=== PATIENT | male | born 1960 | race Caucasian/White ===

== ENCOUNTER 2018-04-23 15:52 | Emergency (ER) | payer OTHER ==
[~2018-04-23] VITALS: Ht 185.4 cm; Wt 86.2 kg
[~2018-04-23 15:52] MED LIST: COQ10 PO; FAMO20; FAMO20 PO; FISH OIL; HYDR-86 PO; LORPSEER12; MULVITMIND PO; NAPR500 PO; OXYACE5T PO; PROBIOTIC PO; Pepcid40 MG PO; RESERVATROL PO; SUCR1 PO; VIT D3
[2018-04-23] MEDS ORDERED: Percocet 5-3251 EACH PO (18:16)
== END 2018-04-23 18:58 | disposition home or self-care (01) ==
LOC: ER 15:52
DX: S52.572A Other intraarticular fracture of lower end of left radius, initial encounter for closed fracture (principal); W11.XXXA Fall on and from ladder, initial encounter
CPT/HCPCS: 25605; 36415; 73100; 73110; 96374; 99152; 99283-25; J3010; J7030

== ENCOUNTER 2018-04-30 06:21 | Day surgery (SDC) | payer OTHER ==
[~2018-04-30] VITALS: Ht 185.4 cm; Wt 83.8 kg
[~2018-04-30 06:21] MED LIST changes: +Percocet 5-3251 EACH PO
[2018-04-30] MEDS ORDERED: Hair, Skin & N1 EACH PO (07:47)
[2018-04-30] MEDS ORDERED: CHOL10002 PO (07:47)
[2018-04-30] MEDS ORDERED: RESVERATROL100 MG PO (07:48)
[2018-04-30] MEDS ORDERED: FISH OIL 1,0001 EAC2 PO (07:48)
== END 2018-04-30 11:12 | disposition home or self-care (01) ==
LOC: ORSCSDS 06:21
PROVIDERS: Orthopaedic Surgery
PROC: 0PSJ04Z Reposition Left Radius with Internal Fixation Device, Open Approach (ICD-10-PCS; principal; 2018-04-30 07:30)
DX: S52.502A Unspecified fracture of the lower end of left radius, initial encounter for closed fracture (principal); E78.5 Hyperlipidemia, unspecified
CPT/HCPCS: C1713; J0171; J0690; J1100; J1885; J2250; J2405; J3010; J7120

== ENCOUNTER → 2020-10-26 | Outpatient (CLI) | payer OTHER ==
[~2020-10-26] MED LIST changes: +CHOL10002 PO; +FISH OIL 1,0001 EAC2 PO; +Hair, Skin & N1 EACH PO; +RESVERATROL100 MG PO
== END | disposition home or self-care (01) ==
LOC: LAB SHORT 11:41 → PLD 11:41
DX: D48.5 Neoplasm of uncertain behavior of skin (principal)
CPT/HCPCS: 88305

== ENCOUNTER → 2021-06-15 | Outpatient (CLI) | payer OTHER | END | disposition home or self-care (01) | LOC: LAB SHORT 11:28 → LAB 11:28 | DX: C44.722 Squamous cell carcinoma of skin of right lower limb, including hip (principal) | CPT/HCPCS: 88305 ==

== ENCOUNTER → 2021-07-29 | Outpatient (CLI) | payer OTHER | END | disposition home or self-care (01) | LOC: LAB 15:31 → LAB SHORT 15:31 | DX: C44.722 Squamous cell carcinoma of skin of right lower limb, including hip (principal) | CPT/HCPCS: 88305 ==

== ENCOUNTER 2022-05-24 00:31 | Day surgery (SDC) | payer OTHER ==
[2022-05-24] MEDS ORDERED: ELIGARD22.5 MG SC ×2 (10:55)
[2022-05-24] MEDS ORDERED: Athenol325 MG PO (10:57)
== END 2022-05-24 10:40 | disposition home or self-care (01) ==
LOC: ATC 00:31
DX: C61 Malignant neoplasm of prostate (principal)
CPT/HCPCS: 96372; J9217

== ENCOUNTER 2022-07-13 08:42 | Day surgery (SDC) | payer OTHER ==
[~2022-07-13] VITALS: Ht 185.4 cm; Wt 104.9 kg
[~2022-07-13 08:42] MED LIST changes: +Athenol325 MG PO; +ELIGARD22.5 MG SC
--- NOTE | 2022-07-13 10:18 | NUR ---
07/13/22 1018 Kyara Shrestha 5MLS OF LIDOCAINE 2% WITH EPI 1:100,000 WAS MIXED 1:1 5MLS OF NACL TO CREATE A SOLUTION OF LIDOCAINE 1% WITH EPI 1:200,000.
--- NOTE | 2022-07-13 11:43 | NUR ---
07/13/22 1143 PAULINO BELLO PT NOW STATES THAT PAIN IS A 3/10. PAIN MEDICATION PO OXYCODONE GIVEN. PT DECLINES FENTANYL NOW SINCE PAIN IS LESS THAN HE AT FIRST THOUGHT.
== END 2022-07-13 12:15 | disposition home or self-care (01) ==
LOC: ORSCSDS 08:42
PROVIDERS: Otolaryngology
PROC: 0GTH0ZZ Resection of Right Thyroid Gland Lobe, Open Approach (ICD-10-PCS; principal; 2022-07-13 10:00)
DX: E04.2 Nontoxic multinodular goiter (principal); Z85.46 Personal history of malignant neoplasm of prostate; K21.9 Gastro-esophageal reflux disease without esophagitis; E78.5 Hyperlipidemia, unspecified
CPT/HCPCS: 88307; A9270; J1100; J1885; J2250; J2405; J2704; J3010; J7120

== ENCOUNTER 2023-12-20 02:59 | Day surgery (SDC) | payer OTHER ==
[~2023-12-20 02:59] MED LIST changes: +BICALUTAMIDE50 M1; +CYCL10; +HYDROCODONE-AC1 EA19 PO; +ONDA4ODT MM
== END 2023-12-20 23:03 | disposition home or self-care (01) ==
LOC: HBO 02:59
DX: M27.2 Inflammatory conditions of jaws (principal); Z92.3 Personal history of irradiation; Z85.46 Personal history of malignant neoplasm of prostate
CPT/HCPCS: G0277

== ENCOUNTER 2023-12-21 03:16 | Day surgery (SDC) | payer OTHER | END 2023-12-21 22:54 | disposition home or self-care (01) | LOC: HBO 03:16 | DX: M27.2 Inflammatory conditions of jaws (principal); Z92.3 Personal history of irradiation; Z85.46 Personal history of malignant neoplasm of prostate | CPT/HCPCS: G0277 ==

== ENCOUNTER 2023-12-28 08:46 | Day surgery (SDC) | payer OTHER | END 2023-12-28 22:56 | disposition home or self-care (01) | LOC: HBO 08:46 | PROC: 6A150ZZ Decompression, Circulatory, Single (ICD-10-PCS; principal; 2023-12-28) | DX: M27.2 Inflammatory conditions of jaws (principal); Z92.3 Personal history of irradiation; Z85.46 Personal history of malignant neoplasm of prostate | CPT/HCPCS: G0277 ==

== ENCOUNTER 2024-01-15 04:19 | Day surgery (SDC) | payer OTHER | END 2024-01-15 22:54 | disposition home or self-care (01) | LOC: HBO 04:19 | DX: M27.2 Inflammatory conditions of jaws (principal); Z92.3 Personal history of irradiation; Z85.46 Personal history of malignant neoplasm of prostate | CPT/HCPCS: G0277 ==

== ENCOUNTER 2024-01-17 08:02 | Day surgery (SDC) | payer OTHER | END 2024-01-17 22:38 | disposition home or self-care (01) | LOC: HBO 08:02 | DX: M27.2 Inflammatory conditions of jaws (principal); Z92.3 Personal history of irradiation; Z85.46 Personal history of malignant neoplasm of prostate | CPT/HCPCS: G0277 ==

== ENCOUNTER 2024-01-18 02:40 | Day surgery (SDC) | payer OTHER | END 2024-01-18 22:39 | disposition home or self-care (01) | LOC: HBO 02:40 | DX: M27.2 Inflammatory conditions of jaws (principal); Z92.3 Personal history of irradiation; Z85.46 Personal history of malignant neoplasm of prostate | CPT/HCPCS: G0277 ==

== ENCOUNTER 2024-01-19 04:14 | Day surgery (SDC) | payer OTHER | END 2024-01-19 22:55 | disposition home or self-care (01) | LOC: HBO 04:14 | DX: M27.2 Inflammatory conditions of jaws (principal); Z92.3 Personal history of irradiation; Z85.46 Personal history of malignant neoplasm of prostate | CPT/HCPCS: G0277 ==

== ENCOUNTER 2024-01-22 00:09 | Day surgery (SDC) | payer OTHER | END 2024-01-22 22:39 | disposition home or self-care (01) | LOC: HBO 00:09 | DX: M27.2 Inflammatory conditions of jaws (principal); Z92.3 Personal history of irradiation; Z85.46 Personal history of malignant neoplasm of prostate | CPT/HCPCS: G0277 ==

== ENCOUNTER 2024-01-23 00:57 | Day surgery (SDC) | payer OTHER | END 2024-01-23 23:16 | disposition home or self-care (01) | LOC: HBO 00:57 | DX: M27.2 Inflammatory conditions of jaws (principal); Z92.3 Personal history of irradiation; Z85.46 Personal history of malignant neoplasm of prostate | CPT/HCPCS: G0277 ==

== ENCOUNTER 2024-01-24 04:45 | Day surgery (SDC) | payer OTHER | END 2024-01-24 23:08 | disposition home or self-care (01) | LOC: HBO 04:45 | DX: M27.2 Inflammatory conditions of jaws (principal); Z92.3 Personal history of irradiation; Z85.46 Personal history of malignant neoplasm of prostate | CPT/HCPCS: G0277 ==

== ENCOUNTER 2024-01-25 03:40 | Day surgery (SDC) | payer OTHER | END 2024-01-25 23:07 | disposition home or self-care (01) | LOC: HBO 03:40 | PROC: 5A05121 Extracorporeal Hyperbaric Oxygenation, Intermittent (ICD-10-PCS; principal; 2024-01-25) | DX: M27.2 Inflammatory conditions of jaws (principal); Z92.3 Personal history of irradiation; Z85.46 Personal history of malignant neoplasm of prostate | CPT/HCPCS: G0277 ==

== ENCOUNTER 2024-01-29 04:12 | Day surgery (SDC) | payer OTHER | END 2024-01-29 22:46 | disposition home or self-care (01) | LOC: HBO 04:12 | DX: M27.2 Inflammatory conditions of jaws (principal); Z92.3 Personal history of irradiation; Z85.46 Personal history of malignant neoplasm of prostate ==

== ENCOUNTER 2024-10-15 08:06 | Emergency (ER) | payer OTHER ==
[~2024-10-15] VITALS: Ht 182.9 cm; Wt 74.8 kg
[2024-10-15 09:57] LABS: BASOPHILS ABSOLUTE AUTO 0.01 K/mm3 (0.00-0.23); BASOPHILS PERCENT AUTO 0 % (0-2); EOSINOPHILS ABSOLUTE AUTO 0.01 K/mm3 (0.00-0.68); EOSINOPHILS PERCENT AUTO 0 % (0-6); Hematocrit 20.7 % (37.0-53.0); Hemoglobin 6.9 g/dL (13.5-17.5); IMMATURE GRAN ABSOLUTE AUTO 0.11 K/mm3 (0.00-0.10); IMMATURE GRAN PERCENT AUTO 3 % (0-1); LYMPHOCYTES ABSOLUTE AUTO 0.09 K/mm3 (0.84-5.20); LYMPHOCYTES PERCENT AUTO 2 % (21-46); MONOCYTES ABSOLUTE AUTO 0.53 K/mm3 (0.16-1.47); MONOCYTES PERCENT AUTO 14 % (4-13); Mean Corpuscular HGB 30.4 pg (26.0-34.0); Mean Corpuscular HGB Conc 33.3 g/dL (31.5-36.5); Mean Corpuscular Volume 91 fL (80-100); Mean Platelet Volume 10.1 fL (9.1-12.4); NEUTROPHILS ABSOLUTE AUTO 3.03 K/mm3 (1.96-9.15); NEUTROPHILS PERCENT AUTO 80 % (41-73); NRBC ABSOLUTE 0.03 K/mm3 (0.00-0.02); NRBC Auto 0.8 /100 WBC (0.0-0.2); Platelet Count 71 K/mm3 (150-400); RDW Coefficient Variation 16.9 % (11.7-14.2); RDW Standard Deviation 55.3 fL (35.1-46.3); Red Blood Cell Count 2.27 M/mm3 (4.30-5.90); White Blood Cell Count 3.78 K/mm3 (4.00-11.30)
[2024-10-15 10:14] LABS: Albumin, Blood 2.6 g/dL (3.4-5.0); Albumin/Globulin Ratio 0.7 (0.8-1.8); Bilirubin, Total 0.4 mg/dL (0.1-1.0); Bun/Creatinine Ratio 30.5 (12.0-20.0); Calcium, Blood 9.4 mg/dL (8.5-10.1); Creatinine, Blood 1.28 mg/dL (0.60-1.20); Globulin, Blood 3.9 g/dL (2.2-4.0); Total Protein, Blood 6.5 g/dL (6.4-8.2)
[2024-10-15] MEDS ORDERED: NS 1,000 ML IV ONE (12:04)
[2024-10-15] MEDS ORDERED: Ondansetron HCl 2 MG / ML 2ML Vial IV ONE ×2 (12:20→18:05)
[2024-10-15] MEDS ORDERED: NS 1,000 ML IV SCH (12:20)
[2024-10-15] MEDS ORDERED: Ibuprofen 400 MG Tab PO ONE (17:55)
[2024-10-15] MEDS ORDERED: Acetaminophen 500 MG Tab PO ONE (17:55)
[2024-10-15 18:00] VITALS: BP 121/69
== END 2024-10-15 18:54 | disposition home or self-care (01) ==
LOC: ER 08:06
PROVIDERS: Student in an Organized Health Care Education/Training Program
DX: D64.9 Anemia, unspecified (principal); C61 Malignant neoplasm of prostate; Z79.899 Other long term (current) drug therapy
CPT/HCPCS: 36430; 80053; 85025; 86850; 86900; 86901; 86923; 96374; 99284-25; A9270; J2405; J7030; P9016

== ENCOUNTER → 2024-11-18 | Outpatient (CLI) | payer OTHER ==
[2024-11-18 17:52] LABS: BASOPHILS ABSOLUTE AUTO 0.01 K/mm3 (0.00-0.23); BASOPHILS PERCENT AUTO 0 % (0-2); EOSINOPHILS ABSOLUTE AUTO 0.04 K/mm3 (0.00-0.68); EOSINOPHILS PERCENT AUTO 1 % (0-6); Hematocrit 21.8 % (37.0-53.0); Hemoglobin 6.9 g/dL (13.5-17.5); IMMATURE GRAN ABSOLUTE AUTO 0.09 K/mm3 (0.00-0.10); IMMATURE GRAN PERCENT AUTO 3 % (0-1); LYMPHOCYTES ABSOLUTE AUTO 0.25 K/mm3 (0.84-5.20); LYMPHOCYTES PERCENT AUTO 8 % (21-46); MONOCYTES ABSOLUTE AUTO 0.26 K/mm3 (0.16-1.47); MONOCYTES PERCENT AUTO 9 % (4-13); Mean Corpuscular HGB 30.3 pg (26.0-34.0); Mean Corpuscular HGB Conc 31.7 g/dL (31.5-36.5); Mean Corpuscular Volume 96 fL (80-100); NEUTROPHILS ABSOLUTE AUTO 2.35 K/mm3 (1.96-9.15); NEUTROPHILS PERCENT AUTO 78 % (41-73); NRBC ABSOLUTE 0.27 K/mm3 (0.00-0.02); RDW Standard Deviation 65.6 fL (35.1-46.3); Red Blood Cell Count 2.28 M/mm3 (4.30-5.90)
[2024-11-18 18:26] LABS: Platelet Count 25 K/mm3 (150-400)
[2024-11-18 23:39] LABS: Alanine Aminotransfer (ALT/SGP 20 U/L (12-78); Albumin, Blood 2.2 g/dL (3.4-5.0); Albumin/Globulin Ratio 0.5 (0.8-1.8); Alk Phos 991 U/L (50-136); Anion Gap 12 mmol/L (3-11); Aspartate Aminotrans (AST/SGOT 195 U/L (12-37); Bilirubin, Total 0.7 mg/dL (0.1-1.0); Blood Urea Nitrogen 36 mg/dL (8-24); Bun/Creatinine Ratio 49.7 (12.0-20.0); CO2, Blood 28 mmol/L (21-32); Calcium, Blood 9.6 mg/dL (8.5-10.1); Chloride, Blood 101 mmol/L (98-108); Creatinine, Blood 0.72 mg/dL (0.60-1.20); Globulin, Blood 4.2 g/dL (2.2-4.0); Glomerular Filtration Rate 101 (60-); Glucose, Blood 106 mg/dL (70-99); Lactate Dehydrogenase (Ld),Bld 4668 U/L (100-240); Potassium, Blood 3.2 mmol/L (3.5-5.5); Sodium, Blood 138 mmol/L (136-145); Total Protein, Blood 6.4 g/dL (6.4-8.2)
== END | disposition home or self-care (01) ==
LOC: LAB 16:56 → LAB SHORT 16:56
PROVIDERS: Internal Medicine Hematology & Oncology
DX: C61 Malignant neoplasm of prostate (principal)
CPT/HCPCS: 80053; 83615; 84153; 85025